=== PATIENT | male | born 1995 | race Caucasian/White ===

== ENCOUNTER 2016-07-14 12:54 | Emergency (ER) | payer OTHER ==
[2016-07-14 12:58] VITALS: BMI 21.9
[2016-07-14] MEDS ORDERED: diazePAM CARPU-JECT 10 MG/2 ML DISP.SYRIN IVPUSH ONE (13:27)
[2016-07-14] MEDS ORDERED: SODIUM CHLORIDE 1,000 ML IV STA ×2 (13:27→16:43)
--- NOTE | 2016-07-14 13:27 | PDOC ---
History of Present Illness - General History Source: Patient Exam Limitations: Intoxication (K2 intake) - History of Present Illness Initial Comments: 07/14/16 16:12 The patient is a 21 year old male with a significant history of K2 abuse who presents to the ED s/p K@ use. The patient reports a history of seizures secondary overdose on K2. Patient comes into the ED today after using K2. Patient reports hallucinations and hand tremors. Limited history secondary to the patient being vague and somewhat paranoid. <Genevieve Nash - Last Filed: 07/14/16 16:11> <Jeannie Baires - Last Filed: 07/18/16 08:49> - General Chief Complaint: Substance Abuse Stated Complaint: DISORIENTED/HALLUCINATION Time Seen by Provider: 07/14/16 13:22 Past History <Genevieve Nash - Last Filed: 07/14/16 16:11> - Past Medical History Asthma: Yes Other medical history: k-2 abuse - Immunization History Immunization Up to Date: Yes - Psycho/Social/Smoking Cessation Hx Anxiety: No Suicidal Ideation: No Smoking Status: No Smoking History: Current some day smoker Have you smoked in the past 12 months: Yes Number of Cigarettes Smoked Daily: 4 Cigars Per Day: 0 Information on smoking cessation initiated: Yes 'Breaking Loose' booklet given: 07/14/16 Hx Alcohol Use: No Drug/Substance Use Hx: Yes (k-d) Substance Use Type: None <Jeannie Baires - Last Filed: 07/18/16 08:49> - Past Medical History Allergies/Adverse Reactions: Allergies Allergy/AdvReac Type Severity Reaction Status Date / Time No Known Allergies Allergy Verified 07/14/16 12:55 Home Medications: Ambulatory Orders Ciprofloxacin [Cipro (Restricted To Id)] 500 mg PO Q12H #20 tablet 09/14/14 Metronidazole [Flagyl] 500 mg PO QID #20 tablet 09/14/14 Review of Systems - Review of Systems Able to Perform ROS?: No (K2 use ) Comments:: 07/14/16 16:13 Unable to perform ROS secondary to patients clinical condition. <Genevieve Nash - Last Filed: 07/14/16 16:11> *Physical Exam - Vital Signs Last Vital Signs Temp Pulse Resp BP Pulse Ox 98.0 F 125 H 18 118/60 100 07/14/16 12:55 07/14/16 12:55 07/14/16 12:55 07/14/16 12:55 07/14/16 12:55 - Physical Exam Comments: 07/14/16 16:13 GENERAL: + mildly anxious, somewhat paranoid. Awake, alert, and fully oriented HEAD: No signs of trauma EYES: PERRLA, EOMI, sclera anicteric, conjunctiva clear ENT: Auricles normal inspection, hearing grossly normal, nares patent, oropharynx clear without exudates. Moist mucosa NECK: Normal ROM, supple, no lymphadenopathy, JVD, or masses LUNGS: Breath sounds equal, clear to auscultation bilaterally. No wheezes, and no crackles HEART: Regular rate and rhythm, normal S1 and S2, no murmurs, rubs or gallops ABDOMEN: Soft, nontender, normoactive bowel sounds. No guarding, no rebound. No masses EXTREMITIES: + tremors in hands. Normal range of motion, no edema. No clubbing or cyanosis. No cords, erythema, or tenderness NEUROLOGICAL: Cranial nerves II through XII grossly intact. Normal speech, normal gait SKIN: Warm, Dry, normal turgor, no rashes or lesions noted. <Genevieve Nash - Last Filed: 07/14/16 16:11> - Vital Signs Last Vital Signs Temp Pulse Resp BP Pulse Ox 98.0 F 125 H 18 118/60 100 07/14/16 12:55 07/14/16 12:55 07/14/16 12:55 07/14/16 12:55 07/14/16 12:55 <Jeannie Baires - Last Filed: 07/18/16 08:49> ED Treatment Course - LABORATORY CBC & Chemistry Diagram: 07/14/16 15:20 07/14/16 15:20 - ADDITIONAL ORDERS Additional order review: Laboratory Results 07/14/16 15:20 Sodium 139 Potassium 4.0 Chloride 105 Carbon Dioxide 26 Anion Gap 8 BUN 16 Creatinine 0.8 Creat Clearance w eGFR > 60 Random Glucose 79 Calcium 9.3 Total Bilirubin 0.6 AST 143 H D ALT 63 D Alkaline Phosphatase 60 D Total Protein 6.7 Albumin 4.0 07/14/16 15:20 RBC 4.93 MCV 88.3 MCHC 33.0 RDW 13.6 MPV 10.1 Neutrophils % 79.1 D Lymphocytes % 13.6 D Monocytes % 6.5 Eosinophils % 0.3 D Basophils % 0.5 - Medications Given in the ED: ED Medications Discontinued Medications Generic Name Dose Route Start Last Admin Trade Name Benson PRN Reason Stop Dose Admin Diazepam 5 mg 07/14/16 13:27 07/14/16 14:41 Valium Injection - IVPUSH 07/14/16 13:28 5 mg ONCE ONE Administration Sodium Chloride 1,000 mls @ 1,000 mls/hr 07/14/16 13:27 07/14/16 14:41 Normal Saline - IV 07/14/16 14:26 1,000 mls/hr ASDIR STA Administration <Genevieve Nash - Last Filed: 07/14/16 16:11> - LABORATORY CBC & Chemistry Diagram: 07/14/16 15:20 07/14/16 15:20 <Jeannie Baires - Last Filed: 07/18/16 08:49> Medical Decision Making - Medical Decision Making 07/14/16 16:[address] Darden at shift change. He has improved with IV hydration and valium, however still appears a bit intoxicated, not yet ready for DC. Will cont to monitor. <Jeannie Baires - Last Filed: 07/18/16 08:49> *DC/Admit/Observation/Transfer - Attestations Scribe Attestion: 07/14/16 16:14 Documentation prepared by Genevieve Nash, acting as medical records tech for Jeannie Baires MD <Genevieve Nash - Last Filed: 07/14/16 16:11> - Discharge Dispostion Admit: No <Jeannie Baires - Last Filed: 07/18/16 08:49> Diagnosis at time of Disposition: Substance abuse - Discharge Dispostion Disposition: HOME Condition at time of disposition: Stable - Patient Instructions Printed Discharge Instructions: Drug Abuse and Drug Addiction Additional Instructions: Please follow up with your doctor.
[2016-07-14] MEDS ORDERED: diazePAM CARPU-JECT 10 MG/2 ML DISP.SYRIN ONE (14:17)
[2016-07-14 15:29] LABS: BASOPHIL 0.5 % (0-2.0); EOSINOPHIL 0.3 % (0-4.5); MCH 29.1 pg (25.7-33.7); MEAN CELL VOLUME 88.3 fl (80-96); MEAN PLT VOLUME 10.1 fl (7.5-11.1); NEUTROPHILS 79.1 % (42.8-82.8); PLATELET COUNT 183 K/MM3 (134-434); RDW 13.6 % (11.9-15.9); WHITE BLOOD COUNT 10.7 K/mm3 (4.0-10.0)
[2016-07-14 15:53] LABS: ALK PHOS 60 U/L (45-117); ANION GAP 8 (8-16); BILIRUBIN,TOTAL 0.6 mg/dL (0.2-1.0); CALCIUM 9.3 mg/dL (8.5-10.1); CO2 26 mmol/L (21-32); CREATININE 0.8 mg/dL (0.7-1.3); GLUCOSE,RANDOM 79 mg/dL (74-106); SGOT/AST 143 U/L (15-37); SGPT/ALT 63 U/L (12-78); TOT PROT 6.7 g/dl (6.4-8.2)
[2016-07-14 17:03] VITALS: BP 117/56; PULSE 89; TEMP 98.1
[2016-07-14 17:39] LABS: URINE APPEARANCE CLEAR; URINE BILIRUBIN NEGATIVE (NEGATIVE); URINE BLOOD NEGATIVE (NEGATIVE); URINE COLOR STRAW; URINE GLUCOSE (UA) NEGATIVE (NEGATIVE); URINE KETONE 1+ (NEGATIVE); URINE LEUK ESTERASE NEGATIVE (NEGATIVE); URINE NITRITE NEGATIVE (NEGATIVE); URINE PROTEIN NEGATIVE (NEGATIVE); URINE UROBILINOGEN NEGATIVE E.U./dl (0.2-1.0)
[2016-07-14 17:42] LABS: URINE MARIJUANA THC POSITIVE ng/ml (CUTOFF=50)
--- NOTE | 2016-07-14 18:30 | PDOC ---
*Physical Exam - Vital Signs Last Vital Signs Temp Pulse Resp BP Pulse Ox 98.1 F 89 18 117/56 98 07/14/16 17:03 07/14/16 17:03 07/14/16 17:03 07/14/16 17:03 07/14/16 17:03 ED Treatment Course - LABORATORY CBC & Chemistry Diagram: 07/14/16 15:20 07/14/16 15:20 - ADDITIONAL ORDERS Additional order review: Laboratory Results 07/14/16 07/14/16 17:12 15:20 Sodium 139 Potassium 4.0 Chloride 105 Carbon Dioxide 26 Anion Gap 8 BUN 16 Creatinine 0.8 Creat Clearance w eGFR > 60 Random Glucose 79 Calcium 9.3 Total Bilirubin 0.6 AST 143 H D ALT 63 D Alkaline Phosphatase 60 D Total Protein 6.7 Albumin 4.0 Opiates Screen Negative Methadone Screen Negative Barbiturate Screen Negative Phencyclidine Screen Negative Ur Amphetamines Screen Negative MDMA (Ecstasy) Screen Negative Benzodiazepines Screen Positive Cocaine Screen Negative U Marijuana (THC) Screen Positive 07/14/16 15:20 RBC 4.93 MCV 88.3 MCHC 33.0 RDW 13.6 MPV 10.1 Neutrophils % 79.1 D Lymphocytes % 13.6 D Monocytes % 6.5 Eosinophils % 0.3 D Basophils % 0.5 - Medications Given in the ED: ED Medications Discontinued Medications Generic Name Dose Route Start Last Admin Trade Name Vitoq PRN Reason Stop Dose Admin Diazepam 5 mg 07/14/16 13:27 07/14/16 14:41 Valium Injection - IVPUSH 07/14/16 13:28 5 mg ONCE ONE Administration Sodium Chloride 1,000 mls @ 1,000 mls/hr 07/14/16 13:27 07/14/16 14:41 Normal Saline - IV 07/14/16 14:26 1,000 mls/hr ASDIR STA Administration Sodium Chloride 1,000 mls @ 1,000 mls/hr 07/14/16 16:43 07/14/16 16:47 Normal Saline - IV 07/14/16 17:42 1,000 mls/hr ASDIR STA Administration Medical Decision Making - Medical Decision Making 07/14/16 18:27 Sign-out received from outgoing Emergency Physician Dr. Baires Pt interviewed and examined Ancillary studies reviewed Case discussed in detail with oncoming Emergency Physician including history, physical exam and ancillary studies. Vital Signs Temp Pulse Resp BP Pulse Ox 98.1 F 89 18 117/56 98 07/14/16 17:03 07/14/16 17:03 07/14/16 17:03 07/14/16 17:03 07/14/16 17:03 Labs and UA reviewed. Utox reviewed. The patient has been observed for several hours. He is now calm and relaxed. he admits that he smoked K2 today. I counselled him on drug cessation. Pt verbalizes understanding. I discussed the physical exam findings, ancillary test results and final diagnoses with the patient. I answered all of the patient's questions. The patient was satisfied with the care received and felt comfortable with the discharge plan and treatment plan. The patient will call their primary care physician within 24 hours to arrange follow-up and will return to the Emergency Department with any new, persistant or worsening symptoms. *DC/Admit/Observation/Transfer Diagnosis at time of Disposition: Substance abuse - Discharge Dispostion Disposition: HOME Condition at time of disposition: Stable - Referrals - Patient Instructions Printed Discharge Instructions: Drug Abuse and Drug Addiction Additional Instructions: Please follow up with your doctor. - Post Discharge Activity
--- NOTE | 2016-07-15 14:49 | EKG ---
Test Reason : Blood Pressure : / mmHG Vent. Rate : 097 BPM Atrial Rate : 097 BPM P-R Int : 168 ms QRS Dur : 080 ms QT Int : 334 ms P-R-T Axes : 070 099 051 degrees QTc Int : 424 ms NORMAL SINUS RHYTHM RIGHTWARD AXIS Confirmed by STEPHAN ARRIETA MD ([id number]) on 07/15/2016 2:49:01 PM Referred By: Confirmed By:STEPHAN ARRIETA MD
== END 2016-07-14 18:37 | disposition home or self-care (01) ==
LOC: JER 12:54
PROC: 3E0337Z Introduction of Electrolytic and Water Balance Substance into Peripheral Vein, Percutaneous Approach (ICD-10-PCS; principal; 2016-07-14)
PROC: 3E033NZ Introduction of Analgesics, Hypnotics, Sedatives into Peripheral Vein, Percutaneous Approach (ICD-10-PCS; 2016-07-14)
DX: F19.10 Other psychoactive substance abuse, uncomplicated (principal)
CPT/HCPCS: 36415; 80053; 80307; 81003; 85025; 93005; 93010; 96361; 96374; 99282-25

== ENCOUNTER 2016-11-23 21:13 | Emergency (ER) | payer SELFPAY ==
[2016-11-23 21:22] VITALS: BP 130/90; PULSE 90; TEMP 98.3; BMI 23.5
--- NOTE | 2016-11-23 21:56 | PDOC ---
History of Present Illness - General History Source: Patient Exam Limitations: No Limitations - History of Present Illness Initial Comments: 11/23/16 22:06 The patient is a 21 male with no past medical history who presents to the ED with a blister on the tip of his penis x1 day. He denies any pain to the area but notices a stinging area when ambulating. He denies any erythema or penile discharge. 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 The patient denies any hx of STDs and was last tested for HIV in April 21. The patient's last noted session of unprotected intercourse was in July. The patient denies any fever, chills, nausea, vomiting, diarrhea, or urinary symptoms. <Jesi Villarreal - Last Filed: 11/23/16 22:09> <Mirtha Dee - Last Filed: 11/23/16 23:37> - General Chief Complaint: Abscess Boil Stated Complaint: SOMETHING ON PENIS Time Seen by Provider: 11/23/16 21:28 Past History <Jesi Villarreal - Last Filed: 11/23/16 22:09> - Past Medical History Asthma: Yes - Immunization History Immunization Up to Date: Yes - Psycho/Social/Smoking Cessation Hx Anxiety: No Suicidal Ideation: No Smoking Status: No Smoking History: Current every day smoker Have you smoked in the past 12 months: Yes Number of Cigarettes Smoked Daily: 20 Cigars Per Day: 0 Information on smoking cessation initiated: Yes 'Breaking Loose' booklet given: 11/23/16 Hx Alcohol Use: No Drug/Substance Use Hx: Yes (k-d) Substance Use Type: None <Mirtha Dee - Last Filed: 11/23/16 23:37> - Past Medical History Allergies/Adverse Reactions: Allergies Allergy/AdvReac Type Severity Reaction Status Date / Time No Known Allergies Allergy Verified 07/14/16 12:55 Home Medications: Ambulatory Orders NK [No Known Home Medication] 11/23/16 Review of Systems - Review of Systems Able to Perform ROS?: Yes Comments:: 11/23/16 22:07 GENERAL/CONSTITUTIONAL: No fever or chills. No weakness. HEAD, EYES, EARS, NOSE AND THROAT: No change in vision. No ear pain or discharge. No sore throat. CARDIOVASCULAR: No chest pain or shortness of breath. RESPIRATORY: No cough, wheezing, or hemoptysis. GASTROINTESTINAL: No nausea, vomiting, diarrhea or constipation. GENITOURINARY: Present: penile blister No dysuria, frequency, or change in urination. MUSCULOSKELETAL: No joint or muscle swelling or pain. No neck or back pain. SKIN: No rash NEUROLOGIC: No headache, vertigo, loss of consciousness, or change in strength/ sensation. ENDOCRINE: No increased thirst. No abnormal weight change. HEMATOLOGIC/LYMPHATIC: No anemia, easy bleeding, or history of blood clots. ALLERGIC/IMMUNOLOGIC: No hives or skin allergy. All Other Systems: Reviewed and Negative <Jesi Villarreal - Last Filed: 11/23/16 22:09> *Physical Exam - Vital Signs Last Vital Signs Temp Pulse Resp BP Pulse Ox 98.3 F 90 16 130/90 97 11/23/16 21:19 11/23/16 21:19 11/23/16 21:19 11/23/16 21:19 11/23/16 21:19 - Physical Exam Comments: 11/23/16 22:07 GENERAL: Awake, alert, and fully oriented, in no acute distress HEAD: No signs of trauma EYES: PERRLA, EOMI, sclera anicteric, conjunctiva clear ENT: Auricles normal inspection, hearing grossly normal, nares patent, oropharynx clear without exudates. Moist mucosa NECK: Normal ROM, supple, no lymphadenopathy, JVD, or masses LUNGS: Breath sounds equal, clear to auscultation bilaterally. No wheezes, and no crackles HEART: Regular rate and rhythm, normal S1 and S2, no murmurs, rubs or gallops ABDOMEN: Soft, nontender, normoactive bowel sounds. No guarding, no rebound. No masses GENITALIA: Uncircumcised. Minute, slightly edematous, area of swelling to the left of urethral meatus, no discharge, no lymphadenopathy, no vesicle EXTREMITIES: Normal range of motion, no edema. No clubbing or cyanosis. No cords, erythema, or tenderness NEUROLOGICAL: Cranial nerves II through XII grossly intact. Normal speech, normal gait SKIN: Warm, Dry, normal turgor, no rashes or lesions noted. <Jesi Villarreal - Last Filed: 11/23/16 22:09> - Vital Signs Last Vital Signs Temp Pulse Resp BP Pulse Ox 98.3 F 90 16 130/90 97 11/23/16 21:19 11/23/16 21:19 11/23/16 21:19 11/23/16 21:19 11/23/16 21:19 <Mirtha Dee - Last Filed: 11/23/16 23:37> Medical Decision Making - Medical Decision Making Documentation has been prepared under my direction and personally reviewed by me in its entirety. I attest that this documented accurately reflects all work, treatment, procedures and medical decision making performed by me. As noted above, this 21-year-old man presents with history of "blister" noted at the tip of his penis today. Patient states that there is minimal discomfort and no discharge/dysuria or other associated symptoms. Although the patient denies previous STDs, he admits to being a male escort. He states that the most recent unprotected contact with clients was "in July". No other significant history. Exam as noted. No blistering/vesicle formation can be appreciated on exam. Remainder of the exam is normal without other lesions, lymphadenopathy, testicular masses. Although patient has no symptoms suggestive of STD now and essentially normal exam, because of his high risk behavior, chlamydia/GC urethral specimen obtained. Meanwhile, the patient given urology referral: Dr.Rechtschaffen andersen. Patient should follow-up with the urology group within the next 5 days. He should return to the emergency room if he develops fever/chills, generalized rash, dysuria/hematuria. <Mirtha Dee - Last Filed: 11/23/16 23:37> *DC/Admit/Observation/Transfer - Attestations Scribe Attestion: 11/23/16 22:08 Documentation prepared by Jesi Villarreal, acting as medical technician assistant for Mirtha Dee MD. <Jesi Villarreal - Last Filed: 11/23/16 22:09> <Mirtha Dee - Last Filed: 11/23/16 23:37> Diagnosis at time of Disposition: Penile lesion - Discharge Dispostion Disposition: HOME Condition at time of disposition: Stable - Referrals Referrals: David Abreu MD [Staff Physician] - - Patient Instructions Additional Instructions: use condoms at all times until seen by urologist Return to ER if you have fever/severe pain/generalized rash Follow-up with Dr.Rechtschaffen andersen (urology) within the next 5-7 days
== END 2016-11-23 22:20 | disposition home or self-care (01) ==
LOC: FER 21:13
DX: S30.822A Blister (nonthermal) of penis, initial encounter (principal); F17.210 Nicotine dependence, cigarettes, uncomplicated
CPT/HCPCS: 36415; 87491; 87591; 99281-25

== ENCOUNTER 2017-06-12 17:38 | Emergency (ER) | payer OTHER ==
--- NOTE | 2017-06-12 17:53 | PDOC ---
Rapid Medical Evaluation Time Seen by Provider: 06/12/17 17:50 Medical Evaluation: Allergies Allergy/AdvReac Type Severity Reaction Status Date / Time No Known Drug Allergies Allergy Verified 06/12/17 17:50 powered drink Allergy Mild Rash Uncoded 06/12/17 17:50 06/12/17 17:50 Healthy 21 year old male with one week of intermittent abdominal pain. Reports location is "rotating", nut is now in RUQ. Pain is 4/10, sharp. No n/v/d. V/s unremarkable -Requests HIV test -Labs including CBC, CMP, lipase, UA To Main ED for further evaluation
[2017-06-12 17:54] VITALS: BMI 23.5
[2017-06-12 18:17] LABS: BASO % 0.5 % (0-2.0); EOS % 3.9 % (0-4.5); HEMATOCRIT 51.8 % (35.4-49); HEMOGLOBIN 17.2 GM/dL (11.7-16.9); MCH 28.8 pg (25.7-33.7); MCHC 33.2 g/dl (32.0-35.9); MEAN CELL VOLUME 86.9 fl (80-96); MEAN PLT VOLUME 9.4 fl (7.5-11.1); MONO % 7.4 % (3.8-10.2); NEUT % 64.2 % (42.8-82.8); RBC 5.96 M/mm3 (4.00-5.60); RDW 13.7 % (11.9-15.9); WHITE BLOOD COUNT 11.4 K/mm3 (4.0-10.0)
[2017-06-12 18:36] LABS: URINE APPEARANCE CLEAR; URINE BILIRUBIN NEGATIVE (NEGATIVE); URINE BLOOD NEGATIVE (NEGATIVE); URINE COLOR DKYELLOW; URINE GLUCOSE (UA) NEGATIVE (NEGATIVE); URINE KETONE TRACE (NEGATIVE); URINE LEUK ESTERASE NEGATIVE (NEGATIVE); URINE NITRITE NEGATIVE (NEGATIVE); URINE PROTEIN NEGATIVE (NEGATIVE)
[2017-06-12 19:22] LABS: ALBUMIN 4.4 g/dl (3.4-5.0); ANION GAP 6 (8-16); BILIRUBIN,TOTAL 0.5 mg/dL (0.2-1.0); CALCIUM 9.6 mg/dL (8.5-10.1); CHLORIDE 106 mmol/L (98-107); CO2 29 mmol/L (21-32); GLUCOSE,RANDOM 80 mg/dL (74-106); LIPASE 98 U/L (73-393); POTASSIUM 4.2 mmol/L (3.5-5.1); SGOT/AST 16 U/L (15-37); SGPT/ALT 22 U/L (12-78); SODIUM 141 mmol/L (136-145); TOT PROT 7.5 g/dl (6.4-8.2)
--- NOTE | 2017-06-12 19:35 | PDOC ---
History of Present Illness - General Chief Complaint: Pain Stated Complaint: STOMACH PAIN Time Seen by Provider: 06/12/17 17:50 History Source: Patient Exam Limitations: No Limitations - History of Present Illness Initial Comments: CHIEF COMPLAINT: 21 y/o afebrile male with PMH migraine headaches and constipation c/o 2 weeks of rotating abdominal cramping. HISTORY OF PRESENT ILLNESS: Pt states the cramping moves to different parts of his stomach. He denies f/c, n/v/d, Cp, SOB, flu like symptoms, back pain, hematuria, dysuria. He has not had a BM in 2 days but has not taken any Miralax. He has also not taken anything for the pain. He is requesting HIV and STD testing. He admits to smoking 1/2 pack per day and drinking a bottle of vodka a day socially. Vital signs on arrival are notable for pulse of 104. REVIEW OF SYSTEMS: GENERAL/CONSTITUTIONAL: No fever/chills. No weakness. No weight change. HEAD, EYES, EARS, NOSE AND THROAT: No change in vision. No ear pain or discharge. No sore throat. CARDIOVASCULAR: No chest pain or shortness of breath. RESPIRATORY: No cough, wheezing, or hemoptysis. GASTROINTESTINAL: +abd cramping. No nausea, vomiting, diarrhea. GENITOURINARY: No dysuria, frequency, or change in urination. MUSCULOSKELETAL: No joint or muscle swelling or pain. No neck or back pain. SKIN: No rash or easy bruising. NEUROLOGIC: No headache, vertigo, loss of consciousness, or loss of sensation. PHYSICAL EXAM: GENERAL: The patient is awake, alert, and fully oriented, in no acute distress. He is very well appearing and ambulatory. HEAD: Normal with no signs of trauma. ENT: Pupils equal, round and reactive to light, extraocular movements intact, sclera anicteric, conjunctiva clear. Neck supple. LUNGS: Clear to auscultation bilaterally. Normal excursion. No respiratory distress or use of accessory muscles. CV: RRR, S1/S2, no MRG. Cap refill < 2 sec. ABDOMEN: Soft, non-distended, minimal TTP of RUQ. Negative Johnson's sign. No rebound, guarding or rigidity. Normal BS x 4. EXTREMITIES: Normal range of motion, no edema. NEUROLOGICAL: Normal speech, normal gait. CN II-XII grossly intact. PSYCH: Normal mood, normal affect. SKIN: Warm, dry, normal turgor, no rashes or lesions noted. Past History - Past Medical History Allergies/Adverse Reactions: Allergies Allergy/AdvReac Type Severity Reaction Status Date / Time No Known Drug Allergies Allergy Verified 06/12/17 17:50 powered drink Allergy Mild Rash Uncoded 06/12/17 17:50 Home Medications: Ambulatory Orders NK [No Known Home Medication] 06/12/17 Anemia: No Asthma: Yes (no treatment) Cancer: No Cardiac Disorders: No CVA: No COPD: No CHF: No Dementia: No Diabetes: Yes GI Disorders: No Disorders: No HTN: No Hypercholesterolemia: No Kidney Stones: No Liver Disease: No Seizures: Yes Thyroid Disease: No - Surgical History Abdominal Surgery: No Appendectomy: No Cardiac Surgery: No Cholecystectomy: No Lung Surgery: No Neurologic Surgery: No Orthopedic Surgery: No - Reproductive History Testicular Surgery: No - Immunization History Immunization Up to Date: Yes - Suicide/Smoking/Psychosocial Hx Smoking Status: No Smoking History: Current every day smoker Have you smoked in the past 12 months: No Number of Cigarettes Smoked Daily: 10 Cigars Per Day: 0 Information on smoking cessation initiated: No 'Breaking Loose' booklet given: 07/06/16 Hx Alcohol Use: Yes Drug/Substance Use Hx: No Substance Use Type: Alcohol Hx Substance Use Treatment: Yes *Physical Exam - Vital Signs Last Vital Signs Temp Pulse Resp BP Pulse Ox 98.1 F 104 H 18 147/81 100 06/12/17 17:51 06/12/17 17:51 06/12/17 17:51 06/12/17 17:51 06/12/17 17:51 ED Treatment Course - LABORATORY CBC & Chemistry Diagram: 06/12/17 18:07 06/12/17 18:07 - ADDITIONAL ORDERS Additional order review: Laboratory Results 06/12/17 18:09 Urine Color Dkyellow Urine Appearance Clear Urine pH 5.0 Ur Specific [place] 1.033 Urine Protein Negative Urine Glucose (UA) Negative Urine Ketones Trace H Urine Blood Negative Urine Nitrite Negative Urine Bilirubin Negative Urine Urobilinogen 2.0 Ur Leukocyte Esterase Negative 06/12/17 18:07 RBC 5.96 H D MCV 86.9 MCHC 33.2 RDW 13.7 MPV 9.4 Neutrophils % 64.2 Lymphocytes % 24.0 D Monocytes % 7.4 Eosinophils % 3.9 D Basophils % 0.5 Medical Decision Making - Medical Decision Making A/P: 21 y/o male with vague abdominal complaints for the past 2 weeks. Pt is also requesting STD and HIV testing. Plan is as follows: 1. labs 2. HIV 3. STD testing Labs remarkable for slight dehydration. HIV negative. patient given his results. Vital signs improved. Patient will be discharged with instructions to drink plenty of water, take miralax, follow up with his PCP within 1 week and return to the ER with any worsening or concerning symptoms. The patient verbalizes understanding of all instructions, has no further questions and is awaiting discharge. *DC/Admit/Observation/Transfer Diagnosis at time of Disposition: Abdominal cramping Constipation Qualifiers: Constipation type: unspecified constipation type Qualified Code(s): K59.00 - Constipation, unspecified - Discharge Dispostion Disposition: HOME Condition at time of disposition: Good - Referrals Referrals: Nicole Albarado [Primary Care Provider] - - Patient Instructions Printed Discharge Instructions: DI for Constipation Additional Instructions: Discharge Instructions: -Your labs showed that you are slightly dehydrated. Please go home and drink lots of water -Your HIV test was negative -Your other STD tests have not been resulted yet. We will call you in 2-3 days with positive results -Take Miralax for your constipation -Follow up with your doctor within 1 week -Return to the ER with any worsening or concerning symptoms - Post Discharge Activity Forms/Work/School Notes: Back to Work
[2017-06-12 20:04] LABS: BLOOD UREA NITROGEN 18 mg/dL (7-18)
--- NOTE | 2017-06-12 20:07 | PDOC ---
*Physical Exam - Vital Signs Last Vital Signs Temp Pulse Resp BP Pulse Ox 98.1 F 104 H 18 147/81 100 06/12/17 17:51 06/12/17 17:51 06/12/17 17:51 06/12/17 17:51 06/12/17 17:51 ED Treatment Course - LABORATORY CBC & Chemistry Diagram: 06/12/17 18:07 06/12/17 18:07 - ADDITIONAL ORDERS Additional order review: Laboratory Results 06/12/17 18:09 Urine Color Dkyellow Urine Appearance Clear Urine pH 5.0 Ur Specific [place] 1.033 Urine Protein Negative Urine Glucose (UA) Negative Urine Ketones Trace H Urine Blood Negative Urine Nitrite Negative Urine Bilirubin Negative Urine Urobilinogen 2.0 Ur Leukocyte Esterase Negative 06/12/17 18:07 RBC 5.96 H D MCV 86.9 MCHC 33.2 RDW 13.7 MPV 9.4 Neutrophils % 64.2 Lymphocytes % 24.0 D Monocytes % 7.4 Eosinophils % 3.9 D Basophils % 0.5 Medical Decision Making - Medical Decision Making 06/12/17 20:06 agree with care from ZAYDA Finney *DC/Admit/Observation/Transfer Diagnosis at time of Disposition: Abdominal cramping Constipation Qualifiers: Constipation type: unspecified constipation type Qualified Code(s): K59.00 - Constipation, unspecified - Discharge Dispostion Condition at time of disposition: Good - Referrals Referrals: Nicole Albarado [Primary Care Provider] - - Patient Instructions - Post Discharge Activity
[2017-06-12 20:14] LABS: PLATELET COUNT 221 K/MM3 (134-434)
[2017-06-12 20:27] LABS: ALK PHOS 75 U/L (45-117)
[2017-06-12 22:23] VITALS: BP 121/77; PULSE 68; TEMP 97.7
== END 2017-06-12 22:45 | disposition home or self-care (01) ==
LOC: JER 17:38
DX: K59.00 Constipation, unspecified (principal); Z11.3 Encounter for screening for infections with a predominantly sexual mode of transmission; J45.909 Unspecified asthma, uncomplicated; Z86.69 Personal history of other diseases of the nervous system and sense organs; F10.10 Alcohol abuse, uncomplicated; F17.210 Nicotine dependence, cigarettes, uncomplicated
CPT/HCPCS: 36415; 80053; 81003; 83690; 85025; 87389; 87491; 87591; 99283-25

== ENCOUNTER 2017-10-08 15:58 | Emergency (ER) | payer OTHER ==
[2017-10-08 16:30] VITALS: BP 142/92; PULSE 88; TEMP 98.3; BMI 23.4
--- NOTE | 2017-10-08 18:21 | PDOC ---
History of Present Illness - General Chief Complaint: HIV Testing Stated Complaint: UNPROTECTED SEX Time Seen by Provider: 10/08/17 17:19 - History of Present Illness Initial Comments: 10/08/17 18:54 The patient is a 22 year old male with past medical history of PTSD who presents to the ED requesting HIV and STD testing. The patient states he is home on leave and yesterday had unprotected sex with an molding line assistant while heavily intoxicated. He denies any penile pain, discharge, rashes or itchiness. He denies any fevers or chills. The patient reports he frequently gets checked for HIV/STDs and reports the last time he was checked was August 2017. He denies any history of prior STD. He requests HIV prophylaxis and treatment for GC/CT as he has had unprotected sex in the past as well. Past History - Past Medical History Allergies/Adverse Reactions: Allergies Allergy/AdvReac Type Severity Reaction Status Date / Time No Known Drug Allergies Allergy Verified 06/12/17 17:50 powered drink Allergy Mild Rash Uncoded 06/12/17 17:50 Home Medications: Ambulatory Orders Emtricita/Rilpivirine/Tenof Df [Complera Tablet] 1 each PO DAILY #28 tablet 08/22 Escitalopram Oxalate [Lexapro -] 20 mg PO DAILY 10/08/17 Raltegravir [Isentress -] 400 mg PO BID #60 tab 10/08/17 Anemia: No Asthma: Yes (no treatment) Cancer: No Cardiac Disorders: No CVA: No COPD: No CHF: No Dementia: No Diabetes: Yes GI Disorders: No Disorders: Yes (STD) HTN: No Hypercholesterolemia: No Kidney Stones: No Liver Disease: No Seizures: Yes Thyroid Disease: No - Surgical History Abdominal Surgery: No Appendectomy: No Cardiac Surgery: No Cholecystectomy: No Lung Surgery: No Neurologic Surgery: No Orthopedic Surgery: No - Reproductive History Testicular Surgery: No - Immunization History Immunization Up to Date: Yes - Suicide/Smoking/Psychosocial Hx Smoking Status: No Smoking History: Current every day smoker Have you smoked in the past 12 months: Yes Number of Cigarettes Smoked Daily: 10 Cigars Per Day: 0 Information on smoking cessation initiated: Yes 'Breaking Loose' booklet given: 07/06/16 Hx Alcohol Use: Yes Drug/Substance Use Hx: No Substance Use Type: Alcohol Hx Substance Use Treatment: Yes Review of Systems - Review of Systems Comments:: 10/08/17 18:54 GENERAL/CONSTITUTIONAL: No fever or chills. No weakness. HEAD, EYES, EARS, NOSE AND THROAT: No change in vision. No ear pain or discharge. No sore throat. GASTROINTESTINAL: No nausea, vomiting, diarrhea or constipation. GENITOURINARY: No dysuria, frequency, or change in urination. CARDIOVASCULAR: No chest pain or shortness of breath. RESPIRATORY: No cough, wheezing, or hemoptysis. MUSCULOSKELETAL: No joint or muscle swelling or pain. No neck or back pain. SKIN: No rash NEUROLOGIC: No headache, vertigo, loss of consciousness, or change in strength/ sensation. ENDOCRINE: No increased thirst. No abnormal weight change. HEMATOLOGIC/LYMPHATIC: No anemia, easy bleeding, or history of blood clots. ALLERGIC/IMMUNOLOGIC: No hives or skin allergy. *Physical Exam - Vital Signs Last Vital Signs Temp Pulse Resp BP Pulse Ox 98.3 F 88 16 142/92 100 10/08/17 16:00 10/08/17 16:00 10/08/17 16:00 10/08/17 16:00 10/08/17 16:00 - Physical Exam Comments: 10/08/17 18:54 GENERAL: Awake, alert, and fully oriented, in no acute distress HEAD: No signs of trauma EYES: PERRLA, EOMI, sclera anicteric, conjunctiva clear ENT: Auricles normal inspection, hearing grossly normal, nares patent, oropharynx clear without exudates. Moist mucosa NECK: Normal ROM, supple, no lymphadenopathy, JVD, or masses LUNGS: Breath sounds equal, clear to auscultation bilaterally. No wheezes, and no crackles HEART: Regular rate and rhythm, normal S1 and S2, no murmurs, rubs or gallops ABDOMEN: Soft, nontender, normoactive bowel sounds. No guarding, no rebound. No masses EXTREMITIES: Normal range of motion, no edema. No clubbing or cyanosis. No cords, erythema, or tenderness NEUROLOGICAL: Normal speech, cranial nerves intact, negative pronator drift, 5/ 5 strength in all 4 extremities, normal sensation to light touch in all 4 extremities, normal cerebellar exam, normal gait, normal reflexes and tone SKIN: Warm, Dry, normal turgor, no rashes or lesions noted. Medical Decision Making - Medical Decision Making 10/08/17 18:39 22yo M with hx PTSD presents to the ED for post exposure HIV, gonorrhea, chlamydia treatment after unprotected sex 2 days ago. Also requests HIV test. Pt asymptomatic with normal vitals, normal exam. WIll treat with azithro, ctx IM and prescribe truvada and isentriss for 28 days. 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 He expresses understanding. HIV pending. 10/08/17 19:29 Pt does not wish to wait for HIV test. Has number on file to call with HIV results. Feels well, requests DC home I discussed the physical exam findings, ancillary test results and final diagnoses with the patient. I answered all of the patient's questions. The patient was satisfied with the care received and felt comfortable with the discharge plan and treatment plan. The patient will call their primary care physician within 24 hours to arrange follow-up and will return to the Emergency Department with any new, persistent or worsening symptoms. *DC/Admit/Observation/Transfer Diagnosis at time of Disposition: Encounter for HIV (human immunodeficiency virus) test - Discharge Dispostion Disposition: HOME Condition at time of disposition: Good Decision to Admit order: No - Prescriptions Prescriptions: Emtricita/Rilpivirine/Tenof Df [Complera Tablet] 1 each PO DAILY #28 tablet Raltegravir [Isentress -] 400 mg PO BID #60 tab - Referrals - Patient Instructions Printed Discharge Instructions: Facts About Sexually Transmitted Infections Additional Instructions: Take the prescribed HIV medications to prevent HIV, they were sent to your pharmacy. Follow up with your primary doctor within 2-3 days. Return to the emergency department if you have any new, worsening, or concerning symptoms. - Post Discharge Activity - Attestations Physician Attestion: 10/08/17 19:31 I, Dr. Brady Gonzalez MD, attest that this document has been prepared under my direction and personally reviewed by me in its entirety. I further attest, that it accurately reflects all work, treatment, procedures and medical decision -making performed by me.
[2017-10-08] MEDS ORDERED: RALTEGRAVIR POTASSIUM 400 MG TAB PO ONE (18:25)
[2017-10-08] MEDS ORDERED: TENOFOVIR DISOPROXIL FUMARATE 300 MG TABLET PO SCH (18:30)
[2017-10-08] MEDS ORDERED: AZITHROMYCIN 500 MG TABLET PO ONE (18:37)
[2017-10-08] MEDS ORDERED: AZITHROMYCIN 1 GM PACKET ONE (18:43)
== END 2017-10-08 19:39 | disposition home or self-care (01) ==
LOC: FER 15:58
DX: Z20.6 Contact with and (suspected) exposure to human immunodeficiency virus [HIV] (principal); F43.10 Post-traumatic stress disorder, unspecified; F17.210 Nicotine dependence, cigarettes, uncomplicated
CPT/HCPCS: 36415; 87389; 87491; 87591; 99281-25

== ENCOUNTER 2017-11-21 17:24 | Emergency (ER) | payer OTHER ==
--- NOTE | 2017-11-21 17:29 | PDOC ---
Rapid Medical Evaluation Time Seen by Provider: 11/21/17 17:26 Medical Evaluation: Allergies Allergy/AdvReac Type Severity Reaction Status Date / Time No Known Drug Allergies Allergy Verified 11/21/17 17:25 powered drink Allergy Mild Rash Uncoded 11/21/17 17:25 I have performed a brief in-person evaluation of this patient. The patient presents with a chief complaint of: here for STD testing. has protected sex. Condoms never broke. No partners told him that they had any STDs Pertinent physical exam findings: none I have ordered the following: HIV, GC/chlamydia, RPR The patient will proceed to the ED for further evaluation. Discharge Disposition - Diagnosis Concern about STD in male without diagnosis - Referrals - Patient Instructions - Post Discharge Activity
[2017-11-21 17:30] VITALS: BP 130/82; PULSE 87; TEMP 98; BMI 23.5
--- NOTE | 2017-11-21 17:46 | PDOC ---
History of Present Illness - General Chief Complaint: Pain Stated Complaint: EVALUATION Time Seen by Provider: 11/21/17 17:26 - History of Present Illness Initial Comments: 22-year-old male without complaints requesting STD testing. He has not had unprotected sex and he has not had any symptoms. He would just like to be tested past medical history significant for PTSD on Lexapro which she does not take 11/21/17 17:40 Past History - Past Medical History Allergies/Adverse Reactions: Allergies Allergy/AdvReac Type Severity Reaction Status Date / Time No Known Drug Allergies Allergy Verified 11/21/17 17:25 powered drink Allergy Mild Rash Uncoded 11/21/17 17:25 Home Medications: Ambulatory Orders Escitalopram Oxalate [Lexapro -] 20 mg PO DAILY 10/08/17 Anemia: No Asthma: Yes (no treatment) Cancer: No Cardiac Disorders: No CVA: No COPD: No CHF: No DVT: No Dementia: No Diabetes: Yes GI Disorders: No Disorders: No HTN: No Hypercholesterolemia: No Kidney Stones: No Liver Disease: No Psychiatric Problems: Yes (PTSD) Seizures: Yes Thyroid Disease: No - Surgical History Abdominal Surgery: No Appendectomy: No Cardiac Surgery: No Cholecystectomy: No Lung Surgery: No Neurologic Surgery: No Orthopedic Surgery: No - Reproductive History Testicular Surgery: No - Immunization History Immunization Up to Date: Yes - Suicide/Smoking/Psychosocial Hx Smoking Status: No Smoking History: Current some day smoker Have you smoked in the past 12 months: Yes Number of Cigarettes Smoked Daily: 10 Cigars Per Day: 0 Information on smoking cessation initiated: Yes 'Breaking Loose' booklet given: 11/21/17 Hx Alcohol Use: Yes Drug/Substance Use Hx: No Substance Use Type: Alcohol Hx Substance Use Treatment: Yes Review of Systems - Review of Systems All Other Systems: Reviewed and Negative *Physical Exam - Vital Signs Last Vital Signs Temp Pulse Resp BP Pulse Ox 98.0 F 87 18 130/82 100 11/21/17 17:27 11/21/17 17:27 11/21/17 17:27 11/21/17 17:27 11/21/17 17:27 - Physical Exam Comments: GENERAL: The patient is awake, alert, and fully oriented, in no acute distress. HEAD: Normal with no signs of trauma. EYES: sclera anicteric, conjunctiva clear. ENT: Ears normal NECK: Normal range of motion EXTREMITIES: Normal range of motion, no edema. No clubbing or cyanosis. No cords, erythema, or tenderness. NEUROLOGICAL: Cranial nerves II through XII grossly intact. Normal speech, normal gait. PSYCH: Normal mood, normal affect. SKIN: Warm, Dry, normal turgor, no rashes or lesions noted. 11/21/17 17:43 Medical Decision Making - Medical Decision Making 11/21/17 17:46 std requested *DC/Admit/Observation/Transfer Diagnosis at time of Disposition: Concern about STD in male without diagnosis - Discharge Dispostion Disposition: HOME Condition at time of disposition: Stable Decision to Admit order: No - Referrals Referrals: Benito Simeon [Non Staff, Medical] - - Patient Instructions Additional Instructions: HIV test was negative she's had unprotected sex within the last 6 months you do require another test in about 6 months he should continue to use protection. The other STD test are pending. Since you are asymptomatic and have not had any risky behavior we will call you with those results. Return to the emergency room should you have any further issues. In the meantime its best to follow-up with the primary care provider in 1-2 days for further evaluation and treatment options. - Post Discharge Activity
== END 2017-11-21 18:47 | disposition home or self-care (01) ==
LOC: JERFT 17:24
DX: Z11.3 Encounter for screening for infections with a predominantly sexual mode of transmission (principal); F43.10 Post-traumatic stress disorder, unspecified
CPT/HCPCS: 36415; 86593; 87389; 87491; 87591; 99281-25

== ENCOUNTER 2017-12-09 02:21 | Emergency (ER) | payer OTHER ==
--- NOTE | 2017-12-09 02:45 | PDOC ---
History of Present Illness - General Stated Complaint: STD TESTING Time Seen by Provider: 12/09/17 02:35 History Source: Patient Exam Limitations: No Limitations - History of Present Illness Initial Comments: 12/09/17 02:42 HISTORY OF PRESENT ILLNESS: 22-year-old male with past medical history of postemetic stress disorder presents emergency Department requesting HIV testing status post unprotected sex approximately 3 months ago. Patient states she was with one female partner and he had oral, anal and vaginal intercourse with his partner. Patient states he was tested for HIV at the 28th day post exposure and is requesting testing now as it has been 90 days since having unprotected intercourse. Patient denies fevers, chills, sore throat, myalgias, headaches, dizziness, arthralgias. No recent travel or sick contacts. PAST MEDICAL HISTORY: PTSD SURGICAL HISTORY: Denies ALLERGIES: No known drug allergies REVIEW OF SYSTEMS General/Constitutional: Denies fever or chills. Denies weakness, weight change. HEENT: Denies change in vision. Denies ear pain or discharge. Denies sore throat. Cardiovascular: Denies chest pain or shortness of breath. Respiratory: Denies cough, wheezing, or hemoptysis. Gastrointestinal: Denies nausea, vomiting, diarrhea or constipation. Denies rectal bleeding. Genitourinary: Denies dysuria, frequency, or change in urination. Musculoskeletal: Denies joint or muscle swelling or pain. Denies neck or back pain. Skin and breasts: Denies rash or easy bruising. Neurologic: Denies headache, vertigo, loss of consciousness, or loss of sensation. Psychiatric: Denies depression or anxiety. Endocrine: Denies increased thirst. Denies abnormal weight change. Hematologic/Lymphatic: Denies anemia, easy bleeding, or history of blood clots. Allergic/Immunologic: Denies hives or skin allergy. Denies latex allergy. PHYSICAL EXAM General Appearance: Well-appearing, appropriately dressed. No apparent distress , no intoxication. HEENT: EOMI, PERRLA, normal ENT inspection, normal voice, TMs normal, pharynx normal. No conjunctival pallor. No photophobia, scleral icterus. Neck: Supple. Trachea midline. No tenderness, rigidity, carotid bruit, stridor , lymphadenopathy, or thyromegaly. Respiratory/Chest: Lungs CTAB. No shortness of breath, chest tenderness, respiratory distress, accessory muscle use. No crackles, rales, rhonchi, stridor , wheezing, dullness Cardiovascular: RRR. S1, S2. No JVD, murmur, bradycardia, tachycardia. Vascular Pulses: Dorsalis-Pedis (R): 2+, Dorsalis-Pedis (L): 2+ Gastrointestinal/Abdominal: Normal bowel sounds. Abdomen soft, non-distended. No tenderness or rebound tenderness. No organomegaly, pulsatile mass, guarding , hernia, hepatomegaly, splenomegaly. Lymphatic: No adenopathy, tenderness. Musculoskeletal/Extremities: Normal inspection. FROM of all extremities, normal capillary refill. Pelvis Stable. No CVA tenderness. No tenderness to extremities, pedal edema, swelling, erythema or deformity. Integumentary: Appropriate color, dry, warm. No cyanosis, erythema, jaundice or rash Neurologic: prescription clerk II-XII intact. Fully oriented, alert. Appropriate mood/affect. Motor strength 5/5. No appreciable EOM palsy, facial droop or sensory deficit. Past History - Past Medical History Allergies/Adverse Reactions: Allergies Allergy/AdvReac Type Severity Reaction Status Date / Time No Known Drug Allergies Allergy Verified 12/09/17 02:44 powered drink Allergy Mild Rash Uncoded 12/09/17 02:44 Home Medications: Ambulatory Orders Escitalopram Oxalate [Lexapro -] 20 mg PO DAILY 10/08/17 Anemia: No Asthma: Yes (no treatment) Cancer: No Cardiac Disorders: No CVA: No COPD: No CHF: No DVT: No Dementia: No Diabetes: Yes GI Disorders: No Disorders: No HTN: No Hypercholesterolemia: No Kidney Stones: No Liver Disease: No Psychiatric Problems: Yes (PTSD) Seizures: Yes Thyroid Disease: No - Surgical History Abdominal Surgery: No Appendectomy: No Cardiac Surgery: No Cholecystectomy: No Lung Surgery: No Neurologic Surgery: No Orthopedic Surgery: No - Reproductive History Testicular Surgery: No - Immunization History Immunization Up to Date: Yes - Suicide/Smoking/Psychosocial Hx Smoking Status: No Smoking History: Current some day smoker Have you smoked in the past 12 months: Yes Number of Cigarettes Smoked Daily: 10 Cigars Per Day: 0 'Breaking Loose' booklet given: 11/21/17 Hx Alcohol Use: Yes Drug/Substance Use Hx: No Substance Use Type: Alcohol Hx Substance Use Treatment: Yes Medical Decision Making - Medical Decision Making 12/09/17 02:44 A/P: 22-year-old male requesting HIV testing Physical exam is within normal limits HIV test 12/09/17 02:57 Patient expressed anxiety regarding pending results. I will give the patient Atarax as he will drive himself home upon discharge. 12/09/17 04:03 HIV testing is negative. I will discharge the patient home to follow-up with [facility] primary doctor or [facility] for [facility]. I discussed the physical exam findings, ancillary test results and final diagnoses with the patient. I answered all of the patient's questions. The patient was satisfied with the care received and felt comfortable with the discharge plan and treatment plan. The patient will call their primary care physician within 24 hours to arrange follow-up and will return to the Emergency Department with any new, persistent or worsening symptoms. *DC/Admit/Observation/Transfer Diagnosis at time of Disposition: Negative laboratory testing for HIV - Discharge Dispostion Disposition: HOME Condition at time of disposition: Stable Decision to Admit order: No - Referrals - Patient Instructions Additional Instructions: Always use condoms when having sex. [facility]. Return to emergency department for any concerns. - Post Discharge Activity
[2017-12-09 02:53] VITALS: BP 155/88; PULSE 85; TEMP 97.9; BMI 24.2
[2017-12-09] MEDS ORDERED: hydrOXYzine HCL 25 MG TABLET (FP) PO ONE (02:56)
== END 2017-12-09 04:09 | disposition home or self-care (01) ==
LOC: JER 02:21
DX: Z11.4 Encounter for screening for human immunodeficiency virus [HIV] (principal); F17.210 Nicotine dependence, cigarettes, uncomplicated; F43.10 Post-traumatic stress disorder, unspecified; E11.9 Type 2 diabetes mellitus without complications
CPT/HCPCS: 36415; 87389; 99282-25

== ENCOUNTER 2018-03-12 14:58 | Emergency (ER) | payer OTHER ==
[2018-03-12 15:11] VITALS: BP 131/81; PULSE 81; TEMP 98; BMI 25.8
--- NOTE | 2018-03-12 15:11 | PDOC ---
Rapid Medical Evaluation Chief Complaint: Chest Pain Time Seen by Provider: 03/12/18 15:08 Medical Evaluation: Allergies Allergy/AdvReac Type Severity Reaction Status Date / Time No Known Drug Allergies Allergy Verified 12/09/17 02:44 powered drink Allergy Mild Rash Uncoded 12/09/17 02:44 03/12/18 15:08 I have performed a brief in person evaluation of the patient. The patient presents with a CC of: CP Pt is a 22 YO male who states he has had CP x 3 weeks. He states it is substernal and is persistent. He denies personal or family hx of CV disease. He denies hx of IV drug use. PE: Skin: Clear Lungs: Clear Heart: RRR MS: Moves all extremities without difficulty. Neuro: Alert and oriented Psych: Appropriate affect I have ordered the following: CV The patient will proceed to the Ed for further evaluation. Discharge Disposition - Diagnosis Chest pain Qualifiers: Chest pain type: unspecified Qualified Code(s): R07.9 - Chest pain, unspecified - Referrals - Patient Instructions - Post Discharge Activity
--- NOTE | 2018-03-12 15:57 | PDOC ---
History of Present Illness - General Chief Complaint: Chest Pain Stated Complaint: DIFFICULTY BREATHING, CHEST PAIN Time Seen by Provider: 03/12/18 15:08 History Source: Patient Exam Limitations: No Limitations - History of Present Illness Initial Comments: 03/12/18 15:51 Pt is a 23yo m with PMH of PTSD presenting to ED with complaints of 2-3 weeks of chest pressure. Pressure is substernal, does not radiate, not relieved or aggrevated by anything. Pt never had symptoms like this before. He tried his mother's inhaler but it did not help. He has not tried any other medicines. Pt has not been able to go to the [place] and see a doctor yet. He denies fever, cough, SOB, back pain, neck pain, abdominal pain, n/v/d, swelling in legs, history of clot, recent travel. Pt smokes around 5 cigarettes daily x 2 years. He admits to drinking between 7-12 beers daily. Denies cardiac history in the family. PMD: none PMH: PTSD PSH: none Meds: none Social: smokes around 5 cigarettes/day. 7-12 beers daily Allergies: nkda Past History - Past Medical History Allergies/Adverse Reactions: Allergies Allergy/AdvReac Type Severity Reaction Status Date / Time No Known Drug Allergies Allergy Verified 03/12/18 15:11 powered drink Allergy Mild Rash Uncoded 03/12/18 15:11 Home Medications: Ambulatory Orders Escitalopram Oxalate [Lexapro -] 20 mg PO DAILY 10/08/17 Anemia: No Asthma: Yes (no treatment) Cancer: No Cardiac Disorders: No CVA: No COPD: No CHF: No DVT: No Dementia: No Diabetes: Yes GI Disorders: No Disorders: No HTN: No Hypercholesterolemia: No Kidney Stones: No Liver Disease: No Psychiatric Problems: Yes (PTSD) Seizures: Yes Thyroid Disease: No - Surgical History Abdominal Surgery: No Appendectomy: No Cardiac Surgery: No Cholecystectomy: No Lung Surgery: No Neurologic Surgery: No Orthopedic Surgery: No - Reproductive History Testicular Surgery: No - Immunization History Immunization Up to Date: Yes - Suicide/Smoking/Psychosocial Hx Smoking Status: No Smoking History: Current some day smoker Have you smoked in the past 12 months: Yes Number of Cigarettes Smoked Daily: 10 Cigars Per Day: 0 Information on smoking cessation initiated: No 'Breaking Loose' booklet given: 11/21/17 Hx Alcohol Use: Yes Drug/Substance Use Hx: No Substance Use Type: Alcohol Hx Substance Use Treatment: Yes Cardiac Specific PMH - Complaint Specific PMHX Pacemaker: No Review of Systems - Review of Systems Constitutional: No: Chills, Fever, Weakness HEENTM: No: Symptoms Reported, Blurred Vision, Recent change in vision Respiratory: No: Cough, Shortness of Breath, Productive cough, Hemoptysis Cardiac (ROS): Yes: Chest Tightness. No: Lightheadedness, Palpitations, Syncope ABD/GI: No: Constipated, Diarrhea, Nausea, Vomiting, Abdominal cramping : No: Burning, Dysuria, Hematuria Musculoskeletal: No: Back Pain, Joint Pain, Muscle Pain, Neck Pain Integumentary: No: Symptoms Reported Neurological: Yes: Headache. No: Numbness, Paresthesia, Tingling, Tremors, Weakness *Physical Exam - Vital Signs Last Vital Signs Temp Pulse Resp BP Pulse Ox 98 F 81 18 131/81 98 03/12/18 15:02 03/12/18 15:02 03/12/18 15:02 03/12/18 15:02 03/12/18 15:02 - Physical Exam General Appearance: Yes: Nourished, Appropriately Dressed. No: Apparent Distress HEENT: positive: EOMI, RED, Normal ENT Inspection Neck: positive: Trachea midline, Supple. negative: Lymphadenopathy (R), Lymphadenopathy (L) Respiratory/Chest: positive: Lungs Clear, Normal Breath Sounds. negative: Crackles, Rales, Rhonchi, Stridor, Wheezing Cardiovascular: positive: Regular Rhythm, Regular Rate, S1, S2. negative: Edema , JVD, Murmur Vascular Pulses: Carotid (R): 2+, Carotid (L): 2+, Dorsalis-Pedis (R): 2+, Doralis-Pedis (L): 2+ Gastrointestinal/Abdominal: positive: Normal Bowel Sounds, Soft. negative: Distended, Guarding, Rebound, Tenderness Musculoskeletal: positive: Other (reproducible pain with chest palpation). 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 NML intact, Fully Oriented, Alert, Normal Mood/ Affect, Normal Response, Motor Strength 5/5 Heart Score/ECG Review - History History: Slightly suspicious - Electrocardiogram EKG: Normal - Age Age: </= 45 - Risk Factors Risk Factors Heart Score: Yes Smoking History Based on the list above the patient has:: 1-2 risk factors - Troponin Troponin: </= normal limit - Score Heart Score - Total: 1 ED Treatment Course - LABORATORY CBC & Chemistry Diagram: 03/12/18 16:00 03/12/18 16:00 - ADDITIONAL ORDERS Additional order review: Laboratory Results 03/12/18 03/12/18 03/12/18 16:00 16:00 16:00 PT with INR 12.20 INR 1.03 Sodium 141 Potassium 4.1 Chloride 107 Carbon Dioxide 28 Anion Gap 6 L BUN 15 Creatinine 1.0 Creat Clearance w eGFR > 60 Random Glucose 108 H Calcium 9.4 Magnesium 2.4 Total Bilirubin 0.5 AST 20 ALT 22 Alkaline Phosphatase 81 Creatine Kinase 156 Creatine Kinase Index 0.7 CK-MB (CK-2) 1.1 Troponin I < 0.02 < 0.02 Total Protein 7.2 Albumin 3.8 03/12/18 16:00 RBC 5.70 H MCV 86.8 MCHC 34.4 RDW 13.3 MPV 9.2 Neutrophils % 63.1 Lymphocytes % 24.6 Monocytes % 6.5 Eosinophils % 5.3 H Basophils % 0.5 Medical Decision Making - Medical Decision Making 03/12/18 15:56 Pt is a 23yo m with PMH of PTSD presenting to ED with complaints of 2 weeks of chest pressure. Vitals: Selected Entries 03/12/18 15:02 Temperature 98 F Pulse Rate 81 Respiratory 18 Rate Blood Pressure 131/81 cBlood Pressure 97 Mean O2 Sat by Pulse 98 Oximetry (%) PE: benign. slightly reproducible with pressure applied to chest DDx: acs, pna, pe, ptx, carditis, costochondritis, bronchitis, pleuritis, asthma , copd, MSK -PERC negative. Vitals stable. Low suspicion for PE at this time. Pt is a smoker which raises HEART score (1). Pt has been having symptoms for 1 week, delta trop not necessary. Labs, ekg and cxr ordered by RME. Will wait for results. Will give Toradol for pain. 03/12/18 16:34 CXR: lungs clear, no acute process EKG: nsr. normal axis. MS 150, QTc 418. No JYOTI or depressions, flattened T in III. No t wave inversions. 03/12/18 16:38 Laboratory Tests 03/12/18 03/12/18 16:00 16:00 WBC 8.7 Hgb 17.0 H Hct 49.5 H Plt Count 208 Eosinophils % 5.3 H Sodium 141 Potassium 4.1 Chloride 107 Carbon Dioxide 28 BUN 15 Creatinine 1.0 Random Glucose 108 H Troponin I < 0.02 Labs unremarkable. Trop negative, normal ekg, and normal CXR. Could be costochondritis or MSK in nature. Can be dc home. Will give pt appointment at clinic and he will follow up there. Pt otherwise stable, no acute process. Pt agrees to plan. *DC/Admit/Observation/Transfer Diagnosis at time of Disposition: Chest pain Qualifiers: Chest pain type: unspecified Qualified Code(s): R07.9 - Chest pain, unspecified - Discharge Dispostion Disposition: HOME Condition at time of disposition: Good Decision to Admit order: No - Referrals - Patient Instructions Printed Discharge Instructions: DI for Atypical Chest Pain, DI for Chest Pain Additional Instructions: You were seen here today for chest pain. Your tests were normal. I do not know the exact cause of your symptoms but nothing life-threatening is happening. I highly recommend you see a primary care doctor. We have set up an appointment for you. I suggest you go to your appointment, but you can cancel anytime and reschedule. You can take Tylenol or ibuprofen for your pain. These medications can be found over the counter at any store. Take as directed. Please do not take medications that have not been prescribed for you. I also recommend that you stop smoking! It is hard, but it is achievable. I also highly recommend that you cut down on drinking. If this is a problem, there are resources available. You can call [facility] if you feel like you need rehab. Come back to the emergency room if pain gets worse, you have difficulty breathing, you develop fever, you develop cough, if you lose consciousnes, or if any new concerning symptom develops. Thank you - Post Discharge Activity
[2018-03-12 16:11] LABS: BASO % 0.5 % (0-2.0); EOS % 5.3 % (0-4.5); HEMATOCRIT 49.5 % (35.4-49); LYMPH % 24.6 % (8-40); MCH 29.9 pg (25.7-33.7); MCHC 34.4 g/dl (32.0-35.9); MEAN CELL VOLUME 86.8 fl (80-96); MEAN PLT VOLUME 9.2 fl (7.5-11.1); MONO % 6.5 % (3.8-10.2); NEUT % 63.1 % (42.8-82.8); PLATELET COUNT 208 K/MM3 (134-434); RDW 13.3 % (11.9-15.9); WHITE BLOOD COUNT 8.7 K/mm3 (4.0-10.0)
[2018-03-12] MEDS ORDERED: KETOROLAC TROMETHAMINE 30 MG/1 ML VIAL IM ONE (16:12)
--- NOTE | 2018-03-12 16:25 | PDOC ---
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 constant, no clear exacerbating/relieving factors, no associated cough/sob/GERD. no f/c/ night sweats, no travel/leg swelling. denies drugs/cocaine or alcohol, occasional cigarette. - Physicial Exam PE: 03/12/18 16:23 Vital signs normal No reproducible chest pain Patient is very well-appearing, conversant and in no acute distress No JVD Heart is regular, lungs are clear, no murmurs or rubs No edema or calf tenderness - Medical Decision Making 03/12/18 16:23 Healthy 22-year-old male presents with nonspecific and localized chest discomfort for 3 weeks, no other cardiopulmonary complaints or red flags on history or physical exam. No ACS or PE risk factors, vital signs are stable. Low suspicion for myocarditis, possible inflammatory process such as pericarditis or pleuritis or bronchitis or costochondritis. Will check labs including single troponin given 3 weeks of symptoms Chest x-ray EKG Trial of anti-inflammatory Reassess and disposition accordingly Heart Score/ECG Review - History History: Slightly suspicious - Electrocardiogram EKG: Normal - Age Age: </= 45 - Risk Factors Based on the list above the patient has:: No risk factors known - Troponin Troponin: </= normal limit - Score Heart Score - Total: 0 #1 ECG reviewed & interpreted by me at: 15:07 General ECG Interpretation: Sinus Rhythm, Normal Rate (77), Normal Intervals ( qtc 418), No acute ischemic changes (no obvious [place] depressions or ST elevations)
[2018-03-12 16:34] LABS: INR 1.03 (0.83-1.09); PROTHROMBIN TIME (PATIENT) 12.2 SEC (9.7-13.0)
[2018-03-12 16:36] LABS: ALBUMIN 3.8 g/dl (3.4-5.0); ALK PHOS 81 U/L (45-117); ANION GAP 6 MMOL/L (8-16); BILIRUBIN,TOTAL 0.5 mg/dL (0.2-1); BLOOD UREA NITROGEN 15 mg/dL (7-18); CALCIUM 9.4 mg/dL (8.5-10.1); CHLORIDE 107 mmol/L (98-107); CO2 28 mmol/L (21-32); GLUCOSE,RANDOM 108 mg/dL (74-106); MAGNESIUM 2.4 mg/dL (1.8-2.4); POTASSIUM 4.1 mmol/L (3.5-5.1); SGOT/AST 20 U/L (15-37); SGPT/ALT 22 U/L (13-61); SODIUM 141 mmol/L (136-145); TOT PROT 7.2 g/dl (6.4-8.2)
[2018-03-12] MEDS ORDERED: KETOROLAC TROMETHAMINE 30 MG/1 ML VIAL ONE (16:50)
--- NOTE | 2018-03-14 11:12 | EKG ---
Test Reason : Blood Pressure : / mmHG Vent. Rate : 077 BPM Atrial Rate : 077 BPM P-R Int : 150 ms QRS Dur : 092 ms QT Int : 370 ms P-R-T Axes : 062 107 046 degrees QTc Int : 418 ms NORMAL SINUS RHYTHM WITH SINUS ARRHYTHMIA RIGHTWARD AXIS INCOMPLETE RIGHT BUNDLE BRANCH BLOCK BORDERLINE ECG WHEN COMPARED WITH ECG OF 14-JUL-2016 14:31, NO SIGNIFICANT CHANGE WAS FOUND Confirmed by VINICIUS DICKERSON, TRISTON ([id number]) on 03/14/2018 11:12:18 AM Referred By: Confirmed By:TRISTON COLVIN MD
== END 2018-03-12 17:50 | disposition home or self-care (01) ==
LOC: JER 14:58
DX: R07.9 Chest pain, unspecified (principal); F43.10 Post-traumatic stress disorder, unspecified; E11.9 Type 2 diabetes mellitus without complications; Z87.09 Personal history of other diseases of the respiratory system
CPT/HCPCS: 36415; 71046-TC-FY; 80053; 82550; 82553; 83735; 84484; 85025; 85610; 93005; 93010; 99282-25

== ENCOUNTER 2019-01-03 20:51 | Emergency (ER) | payer OTHER ==
--- NOTE | 2019-01-03 21:10 | PDOC ---
Rapid Medical Evaluation Medical Evaluation: Allergies Allergy/AdvReac Type Severity Reaction Status Date / Time No Known Drug Allergies Allergy Verified 03/12/18 15:11 powered drink Allergy Mild Rash Uncoded 03/12/18 15:11 01/03/19 20:53 I have performed a brief in-person evaluation of this patient. The patient presents with a chief complaint of: R knee injury after tire fell on pt yesterday at work. H/o PTSD, anxiety, depression, smoker, polysubstance abuse, ?DM Pertinent physical exam findings:stable I have ordered the following:nothing The patient will proceed to the ED for further evaluation. Discharge Disposition - Diagnosis Knee injury Qualifiers: Encounter type: initial encounter Laterality: right Qualified Code(s): S89.91XA - Unspecified injury of right lower leg, initial encounter - Referrals - Patient Instructions - Post Discharge Activity
[2019-01-03 21:12] VITALS: BP 144/82; PULSE 90; TEMP 97.6; BMI 27.1
--- NOTE | 2019-01-03 22:01 | PDOC ---
History of Present Illness - General Chief Complaint: Injury Stated Complaint: PAIN TO RT KNEE Time Seen by Provider: 01/03/19 20:58 History Source: Patient Exam Limitations: No Limitations - History of Present Illness Initial Comments: 01/03/19 21:54 HISTORY OF PRESENT ILLNESS: This a 23-year-old male who presents emergency department for evaluation of right knee pain rated 2/10 status post being struck by a deflated tire. 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 Over moving a tire from the vehicle it slipped off the lug nuts striking him in the knee. Patient reports was a minor injury but is requesting evaluation. No recent travel or sick contacts. PAST MEDICAL HISTORY: PTSD SURGICAL HISTORY: Denies ALLERGIES: No known drug allergies REVIEW OF SYSTEMS General/Constitutional: Denies fever or chills. Denies weakness, weight change. HEENT: Denies change in vision. Denies ear pain or discharge. Denies sore throat. Cardiovascular: Denies chest pain or shortness of breath. Respiratory: Denies cough, wheezing, or hemoptysis. Gastrointestinal: Denies nausea, vomiting, diarrhea or constipation. Denies rectal bleeding. Genitourinary: Denies dysuria, frequency, or change in urination. Musculoskeletal: see HPI Skin and breasts: Denies rash or easy bruising. Neurologic: Denies headache, vertigo, loss of consciousness, or loss of sensation. Psychiatric: Denies depression or anxiety. Endocrine: Denies increased thirst. Denies abnormal weight change. Hematologic/Lymphatic: Denies anemia, easy bleeding, or history of blood clots. Allergic/Immunologic: Denies hives or skin allergy. Denies latex allergy. PHYSICAL EXAM General Appearance: Well-appearing, appropriately dressed. No apparent distress , no intoxication. Respiratory/Chest: Lungs CTAB. No shortness of breath, chest tenderness, respiratory distress, accessory muscle use. No crackles, rales, rhonchi, stridor , wheezing, dullness Cardiovascular: RRR. S1, S2. No JVD, murmur, bradycardia, tachycardia. Vascular Pulses: Dorsalis-Pedis (R): 2+, Dorsalis-Pedis (L): 2+ Musculoskeletal/Extremities: Normal inspection. FROM of all extremities, normal capillary refill. Pelvis Stable. No CVA tenderness. No tenderness to extremities, pedal edema, swelling, erythema or deformity. No bony deformity, crepitus, step offs present to right femur, patella, tibia or fibula. Negative Georgie test. Integumentary: Appropriate color, dry, warm. No cyanosis, erythema, jaundice or rash 01/03/19 21:59 Past History - Past Medical History Allergies/Adverse Reactions: Allergies Allergy/AdvReac Type Severity Reaction Status Date / Time No Known Drug Allergies Allergy Verified 03/12/18 15:11 powered drink Allergy Mild Rash Uncoded 01/03/19 21:12 Home Medications: Ambulatory Orders Escitalopram Oxalate [Lexapro -] 20 mg PO DAILY 10/08/17 Anemia: No Asthma: Yes (no treatment) Cancer: No Cardiac Disorders: No CVA: No COPD: No CHF: No DVT: No Dementia: No Diabetes: Yes GI Disorders: No Disorders: No HTN: No Hypercholesterolemia: No Kidney Stones: No Liver Disease: No Psychiatric Problems: Yes (PTSD) Seizures: Yes Thyroid Disease: No - Surgical History Abdominal Surgery: No Appendectomy: No Cardiac Surgery: No Cholecystectomy: No Lung Surgery: No Neurologic Surgery: No Orthopedic Surgery: No - Reproductive History Testicular Surgery: No - Immunization History Immunization Up to Date: Yes - Suicide/Smoking/Psychosocial Hx Smoking Status: No Smoking History: Current every day smoker Have you smoked in the past 12 months: Yes Number of Cigarettes Smoked Daily: 10 Cigars Per Day: 0 Information on smoking cessation initiated: No 'Breaking Loose' booklet given: 11/21/17 Hx Alcohol Use: Yes Drug/Substance Use Hx: Yes Substance Use Type: Alcohol Hx Substance Use Treatment: Yes *Physical Exam - Vital Signs Last Vital Signs Temp Pulse Resp BP Pulse Ox 97.6 F 90 15 144/82 100 01/03/19 21:07 01/03/19 21:07 01/03/19 21:07 01/03/19 21:07 01/03/19 21:07 Medical Decision Making - Medical Decision Making 01/03/19 21:54 A/P: 23-year-old male with right knee pain for 3 days after being struck with a tire while at work No bony tenderness, crepitus or deformity present. Patient is infiltrate in the knee without difficulty Able to achieve full extension without difficulty and flexion beyond 90 without difficulty. Patient is refusing pain medication and imaging at this time Discharge home Portions of this note have been documented using voice recognition software. As a result, errors may occur in the director of convention services process. Effort has been made to correct all grammatical and director of convention services error, but some may have been missed. *DC/Admit/Observation/Transfer Diagnosis at time of Disposition: Knee injury Qualifiers: Encounter type: initial encounter Laterality: right Qualified Code(s): S89.91XA - Unspecified injury of right lower leg, initial encounter - Discharge Dispostion Disposition: HOME Condition at time of disposition: Stable Decision to Admit order: No - Referrals - Patient Instructions Additional Instructions: Take Tylenol or Motrin as needed for pain. Follow manufacturers instructions for appropriate dosage. Try not to walk or bear weight on your left ankle as much as possible for the next 3 days. Apply ice for 20 minutes and removed for at least 20 minutes before reapplying the ice. You've been given the number for an orthopedist. If symptoms do not resolve within the next 7 days call the orthopedist for further evaluation. Return to emergency department for discoloration of the foot, numbness or tingling to the foot, worsening pain, or any other concerns. Thank you very much for choosing us to provide your emergent healthcare needs. - Post Discharge Activity
== END 2019-01-03 22:00 | disposition home or self-care (01) ==
LOC: JERFT 20:51
DX: S89.81XA Other specified injuries of right lower leg, initial encounter (principal); W22.8XXA Striking against or struck by other objects, initial encounter; Y93.89 Activity, other specified; Y92.69 Other specified industrial and construction area as the place of occurrence of the external cause; Y99.0 Civilian activity done for income or pay
CPT/HCPCS: 99281-25

== ENCOUNTER 2019-03-29 20:34 | Emergency (ER) | payer SELFPAY ==
[2019-03-29 20:40] VITALS: BP 128/83; PULSE 95; TEMP 98.7; BMI 22.6
--- NOTE | 2019-03-29 22:43 | PDOC ---
History of Present Illness - General Chief Complaint: HIV Testing Stated Complaint: HIV TESTING Time Seen by Provider: 03/29/19 22:04 History Source: Patient Exam Limitations: Clinical Condition - History of Present Illness Initial Comments: 03/29/19 22:40 Patient with no significant past medical history presented with partner for STD testing as they just started dating. Denies any symptoms Is this a multiple visit Asthma Patient?: No Past History - Past Medical History Allergies/Adverse Reactions: Allergies Allergy/AdvReac Type Severity Reaction Status Date / Time No Known Drug Allergies Allergy Verified 03/29/19 20:40 powered drink Allergy Mild Rash Uncoded 03/29/19 20:40 Home Medications: Ambulatory Orders Escitalopram Oxalate [Lexapro -] 20 mg PO DAILY 10/08/17 Anemia: No Asthma: Yes (no treatment) Cancer: No Cardiac Disorders: No CVA: No COPD: No CHF: No DVT: No Dementia: No Diabetes: Yes GI Disorders: No Disorders: No HTN: No Hypercholesterolemia: No Kidney Stones: No Liver Disease: No Psychiatric Problems: Yes (PTSD) Seizures: Yes Thyroid Disease: No - Surgical History Abdominal Surgery: No Appendectomy: No Cardiac Surgery: No Cholecystectomy: No Lung Surgery: No Neurologic Surgery: No Orthopedic Surgery: No - Reproductive History Testicular Surgery: No - Immunization History Immunization Up to Date: Yes - Psycho Social/Smoking Cessation Hx Smoking Status: No Smoking History: Current some day smoker Have you smoked in the past 12 months: Yes Number of Cigarettes Smoked Daily: 10 Cigars Per Day: 0 Information on smoking cessation initiated: No 'Breaking Loose' booklet given: 11/21/17 Hx Alcohol Use: No Drug/Substance Use Hx: No Substance Use Type: Alcohol Hx Substance Use Treatment: Yes Review of Systems - Review of Systems Able to Perform ROS?: Yes Is the patient limited Nepali proficient: No Constitutional: No: Chills, Diaphoresis, Fever, Malaise HEENTM: No: Symptoms Reported Respiratory: No: Symptoms reported Cardiac (ROS): No: Symptoms Reported : No: Symptoms Reported, Burning, Discharge, Frequency, Urgency Musculoskeletal: No: Symptoms Reported Integumentary: No: Symptoms Reported, Rash All Other Systems: Reviewed and Negative *Physical Exam - Vital Signs Last Vital Signs Temp Pulse Resp BP Pulse Ox 98.7 F 95 H 20 128/83 99 03/29/19 20:35 03/29/19 20:35 03/29/19 20:35 03/29/19 20:35 03/29/19 20:35 - Physical Exam General Appearance: Yes: Nourished, Appropriately Dressed. No: Apparent Distress HEENT: positive: Normal ENT Inspection Neck: positive: Supple Respiratory/Chest: negative: Respiratory Distress, Accessory Muscle Use Musculoskeletal: positive: Normal Inspection Extremity: positive: Normal Inspection Integumentary: positive: Normal Color Neurologic: positive: Fully Oriented, Alert, Normal Mood/Affect, Normal Response Medical Decision Making - Medical Decision Making 03/29/19 22:41 Patient with no significant past medical history presented with partner for STD testing as they just started dating. Denies any symptoms HIV test, GC and chlamydia tests ordered. Syphilis test ordered 03/29/19 23:35 HIV and RPR negative. GC/CHL pending and pt will be contacted with results. Patient stable for discharge Discharge - Discharge Information Problems reviewed: Yes Clinical Impression/Diagnosis: Screening examination for sexually transmitted disease Condition: Stable Disposition: HOME - Admission No - Follow up/Referral - Patient Discharge Instructions Patient Printed Discharge Instructions: Facts About Sexually Transmitted Infections, How to Detect and Treat STDs Additional Instructions: Your HIV test and syphilis is negative. You will be contacted with the rest of the lab results which will be available in a few days - Post Discharge Activity
== END 2019-03-29 23:50 | disposition home or self-care (01) ==
LOC: JERFT 20:34
DX: Z11.3 Encounter for screening for infections with a predominantly sexual mode of transmission (principal)
CPT/HCPCS: 36415; 86593; 87389; 87491; 87591; 99281-25

== ENCOUNTER 2021-03-01 21:05 | Emergency (ER) | payer OTHER ==
[2021-03-01 21:10] VITALS: BP 142/95; PULSE 83; TEMP 98.1; BMI 32.3
[2021-03-01] MEDS ORDERED: FLUORESCEIN NA 1 EA STRIP OU ONE (21:51)
[2021-03-01] MEDS ORDERED: ERYTHROMYCIN 0.5% OPHTHALMIC OINTMENT 3.5 GM TUBE OU ONE (21:51)
[2021-03-01] MEDS ORDERED: ERYTHROMYCIN 0.5% OPHTHALMIC OINTMENT 3.5 GM TUBE ONE (21:52)
[2021-03-01] MEDS ORDERED: FLUORESCEIN NA 1 EA STRIP ONE (21:52)
== END 2021-03-01 22:39 | disposition home or self-care (01) ==
LOC: JERFT 21:05
DX: S05.02XA Injury of conjunctiva and corneal abrasion without foreign body, left eye, initial encounter (principal); W45.8XXA Other foreign body or object entering through skin, initial encounter
CPT/HCPCS: 99283-25

== ENCOUNTER 2021-10-10 19:50 | Emergency (ER) | payer OTHER ==
[2021-10-10 20:15] VITALS: BP 162/64; PULSE 108; TEMP 98.6; BMI 29.5
[2021-10-10 23:06] LABS: PH,URINE 6.5 (5.0-8.0); URINE APPEARANCE CLEAR; URINE BILIRUBIN NEGATIVE (NEGATIVE); URINE COLOR YELLOW; URINE GLUCOSE (UA) NEGATIVE (NEGATIVE); URINE KETONE TRACE (NEGATIVE); URINE LEUK ESTERASE NEGATIVE (NEGATIVE); URINE NITRITE NEGATIVE (NEGATIVE); URINE PROTEIN NEGATIVE (NEGATIVE)
== END 2021-10-11 01:32 | disposition home or self-care (01) ==
LOC: JERFT 19:50 → JER 19:50
DX: N50.811 Right testicular pain (principal)
CPT/HCPCS: 36415; 76870-TC; 81003; 87086; 87491; 87591; 99284-25